=== PATIENT | female | born 1965 | race Two or more races ===

== ENCOUNTER 2021-01-22 13:49 | Emergency (ER) | payer OTHER ==
[~2021-01-22] VITALS: Ht 165.1 cm; Wt 83.5 kg
[2021-01-22 13:54] VITALS: BP 132/75
--- NOTE | 2021-01-22 14:03 | NUR ---
[facility] [employer]PER[employer] [id number] USED FOR TRIAGE
--- NOTE | 2021-01-22 15:02 | NUR ---
ALL RESULTS ARE BACK AT THIS TIME. CHART UP FOR RECHECK.
== END 2021-01-22 16:39 | disposition home or self-care (01) ==
LOC: ED 14:15
DX: S16.1XXA Strain of muscle, fascia and tendon at neck level, initial encounter (principal); S46.811A Strain of other muscles, fascia and tendons at shoulder and upper arm level, right arm, initial encounter; R07.89 Other chest pain; R94.31 Abnormal electrocardiogram [ECG] [EKG]; V43.63XA Car passenger injured in collision with pick-up truck in traffic accident, initial encounter; Y93.89 Activity, other specified; Y92.410 Unspecified street and highway as the place of occurrence of the external cause; Y99.8 Other external cause status
CPT/HCPCS: 71046; 93005; 99283